=== PATIENT | male | born 1990 | race African-American/Black ===

== ENCOUNTER 2018-12-30 15:15 | Emergency (ER) | payer OTHER ==
[~2018-12-30] VITALS: Ht 180.3 cm; Wt 83.9 kg
[~2018-12-30 15:15] MED LIST: IBUPROFEN 800800 M1 PO; ONDANSETRON HCL4 M2 PO; ZOFRAN ODT4 MG PO
[2018-12-30 15:22] VITALS: BP 171/105
[2018-12-30 15:47] LABS: ABSOLUTE NEUTROPHILS 8.3 thou/uL (1.4-8.2); BASOPHILS 0.7 % (0.0-2.0); EOSINOPHILS 0.4 % (0.0-3.0); HEMATOCRIT 43.4 % (42.0-52.0); HEMOGLOBIN 14.4 gm/dL (14.0-18.0); LYMPHOCYTES 20.1 % (24.0-44.0); MCH 27.7 pg (26.0-34.0); MCHC 33.2 g/dL (28.0-37.0); MCV 83.5 fL (80.0-100.0); MONOCYTES 4.5 % (1.0-8.0); PLATELET COUNT 230 thou/uL (150-400); POLYS 74.3 % (36.0-66.0); RDW 14.6 % (10.5-14.5); WBC 11.2 thou/uL (4.0-11.0)
[2018-12-30 15:56] LABS: CALCIUM 9.6 mg/dL (8.5-10.1); CREATININE 1.2 mg/dL (0.7-1.3); POTASSIUM 3.9 mmol/L (3.5-5.1)
[2018-12-30 16:02] LABS: ALBUMIN 4.6 g/dL (3.4-5.0); TOTAL BILIRUBIN 0.5 mg/dL (<0.1-1.0); TOTAL PROTEIN 8.4 g/dL (6.4-8.2)
[2018-12-30] MEDS ORDERED: ONDANSETRON ODT8 MG PO (17:56)
== END 2018-12-30 19:32 | disposition left against medical advice (07) ==
LOC: ER 15:15
PROVIDERS: Emergency Medicine
DX: R11.2 Nausea with vomiting, unspecified (principal); R19.7 Diarrhea, unspecified; R10.13 Epigastric pain

== ENCOUNTER 2019-01-01 08:58 | Emergency (ER) | payer OTHER ==
[~2019-01-01] VITALS: Ht 177.8 cm; Wt 90.7 kg
[~2019-01-01 08:58] MED LIST changes: +ONDANSETRON ODT8 MG PO
[2019-01-01 09:27] LABS: ABSOLUTE NEUTROPHILS 7.3 thou/uL (1.4-8.2); BASOPHILS 0.7 % (0.0-2.0); EOSINOPHILS 0.3 % (0.0-3.0); HEMATOCRIT 40.8 % (42.0-52.0); HEMOGLOBIN 13.3 gm/dL (14.0-18.0); LYMPHOCYTES 14.1 % (24.0-44.0); MCH 27.6 pg (26.0-34.0); MCHC 32.6 g/dL (28.0-37.0); MCV 84.7 fL (80.0-100.0); MONOCYTES 3.5 % (1.0-8.0); PLATELET COUNT 213 thou/uL (150-400); POLYS 81.4 % (36.0-66.0); RBC 4.82 mil/uL (4.50-6.00); RDW 14.7 % (10.5-14.5); WBC 8.9 thou/uL (4.0-11.0)
[2019-01-01 09:32] LABS: URINE BILIRUBIN NEGATIVE (Negative); URINE BLOOD NEGATIVE (Negative); URINE CLARITY CLEAR; URINE COLOR YELLOW; URINE GLUCOSE-RANDOM* NEGATIVE (Negative); URINE KETONES NEGATIVE (Negative); URINE LEUKOCYTES-REFLEX NEGATIVE (Negative); URINE NITRITE-REFLEX NEGATIVE (Negative); URINE PROTEIN (DIPSTICK) TRACE (Negative); URINE UROBILINOGEN 0.2 E.U./dl (0.2-1.0)
[2019-01-01 09:35] LABS: ANION GAP 14 mmol/L (7-16); BUN 16 mg/dL (7-18); CALCIUM 9.3 mg/dL (8.5-10.1); CHLORIDE 105 mmol/L (98-107); CO2 25 mmol/L (21-32); CREATININE 1.3 mg/dL (0.7-1.3); GLUCOSE 141 mg/dL (74-106); POTASSIUM 3.9 mmol/L (3.5-5.1); SODIUM 144 mmol/L (136-145)
[2019-01-01 09:47] LABS: AMP/METHAMP Negative (Negative); BARBITURATES Negative (Negative); BENZODIAZEPINES Negative (Negative); COCAINE POSITIVE (Negative); METHADONE Negative (Negative); OPIATES Negative (Negative); PCP Negative (Negative)
[2019-01-01 09:47] LABS: ALBUMIN 4.4 g/dL (3.4-5.0); LIPASE 63 U/L (73-393); SGOT 27 U/L (15-37); SGPT 44 U/L (30-65); TOTAL BILIRUBIN 0.2 mg/dL (<0.1-1.0); TROPONIN-I <0.06 ng/mL (<0.06)
[2019-01-01] MEDS ORDERED: ONDANSETRON ODT8 MG PO (10:13)
[2019-01-01] MEDS ORDERED: PROMS25 WY RECTAL (10:13)
[2019-01-01 10:45] VITALS: BP 140/60
--- NOTE | 2019-01-01 17:26 | EKG ---
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 : 1990 Requested By: Jose Castro Order Number: [id number] MD: Marc Rodriguez Measurements Intervals [place]ryker Rate: 64 P: 62 VT: 187 QRS: 62 QRSD: 92 T: 28 QT: 403 QTc: 416 Interpretive Statements Sinus rhythm Normal tracing Compared to ECG 12/07/2015 05:28:58 No significant changes Electronically Signed On 01-01-2019 17:26:27 CDT by Marc Rodriguez [email or web address] ��������������������������������������������� <ELECTRONICALLY SIGNED> ���������������������������������������� By: Marc Rodriguez MD, [facility] ��������������������������������������������� 01/01/19 1726 0933 2 Marc Rodriguez MD, FACC /EPI
== END 2019-01-01 10:46 | disposition home or self-care (01) ==
LOC: ER 08:58
PROVIDERS: Emergency Medicine
DX: F12.188 Cannabis abuse with other cannabis-induced disorder (principal); F14.10 Cocaine abuse, uncomplicated; F12.10 Cannabis abuse, uncomplicated; R10.84 Generalized abdominal pain; R11.2 Nausea with vomiting, unspecified